=== PATIENT | female | born 1960 | race Caucasian/White ===

== ENCOUNTER 2020-08-22 18:32 | Outpatient (REF) | payer BC, SELFPAY ==
--- NOTE | 2020-08-22 11:45 | PAPFT_PTH ---
PATIENT: Debra Alves LOC: [facility] U#:[id number] AGE/SX: 59/F ROOM: RE08/22/[address]: Leonor Leger APRN : 1960 BED: DIS: 08/22/2020 SPEC #: [id number] RECD: 08/22/20 18:36 STATUS: NAHUM REQ #: [id number] MANDI: 08/22/20 11:[address]: Leonor Leger DEPT: [facility] Cytology RECD BY: Violet Sarkar Tissues: 1 - CX/ENDOCX FOR PAP SMEARS Procedures: PAP THIN PREP/UVM Screening HPV DNA PROBE Comments: [id number]
== END 2020-08-22 18:52 ==
LOC: LBN 18:32
PROVIDERS: PCP Nurse Practitioner Family; Visit Provider Nurse Practitioner Family
DX: Z12.4 Encounter for screening for malignant neoplasm of cervix (principal); Z11.51 Encounter for screening for human papillomavirus (HPV)
CPT/HCPCS: 88142; 87624

== ENCOUNTER 2020-09-21 00:56 | Outpatient (CLI) | payer BC, SELFPAY ==
--- NOTE | 2020-09-21 10:50 | DI.MAMMO_ITS ---
EXAM: MAMMO SCREENING CLINICAL HISTORY: screening, Z12.39 TECHNIQUE: Mammograms were interpreted according to the usual protocol including computer analysis w [email or web address] CAD system, tomosynthesis and C-view imaging. COMPARISON: 2017 and 2018 FINDINGS: The breasts are composed of heterogeneously dense fibroglandular densities, Breast Density category C . No suspicious masses or suspicious microcalcifications are seen. No skin thickening or abnormal axillary lymph nodes are seen. There has been no significant change from prior exams. IMPRESSION: BI-RADS Category 1, Negative mammogram. Yearly screening mammography is recommended. Breast Density Category C, heterogeneously Dense. The mammogram demonstrates the patient's breast tissue is dense. Dense breast tissue is very common a nd is not abnormal but dense breast tissue can make it harder to find cancer on a mammogram. Also, de nse breast tissue may increase breast cancer risk. This information about the result of the mammogram report was provided to the patient to raise their awareness. Use this report when you speak with the patient about their risks for breast cancer, which includes their family history. At that time, you may recommend additional screening tests (Ultrasound or MRI) as they might be useful based on their r isk. A negative radiographic report should not delay biopsy if a dominant or clinically suspicious mass is present. Up to ten percent of cancers are not identified on mammography. A negative report may reinforce clinical impression. Adenosis and dense breasts may obscure an underlying neoplasm. False positive reports average 6 to 10%.
== END 2020-09-21 01:16 ==
PROVIDERS: PCP Nurse Practitioner Family; Visit Provider Nurse Practitioner Family
DX: Z12.31 Encounter for screening mammogram for malignant neoplasm of breast (principal)
CPT/HCPCS: 77063; 77067

== ENCOUNTER 2020-09-21 01:32 | Outpatient (CLI) | payer BC, SELFPAY ==
[2020-09-21 11:38] LABS: TSH (W/Ref FT4) 1.74 uIU/mL (0.36-3.74)
== END 2020-09-21 01:52 ==
PROVIDERS: PCP Nurse Practitioner Family; Visit Provider Nurse Practitioner Family
DX: E03.9 Hypothyroidism, unspecified (principal)
CPT/HCPCS: 36415; 84443

== ENCOUNTER 2020-09-23 11:04 | Outpatient (CLI) | payer BC, SELFPAY ==
[2020-09-26 02:14] LABS: Patient Race White; SARS-CoV-2 RNA Undetected (Undetected); SARS-CoV-2 Specimen Source Nasal
== END 2020-09-23 11:24 ==
PROVIDERS: PCP Nurse Practitioner Family; Visit Provider Nurse Practitioner Family
DX: Z20.828 Contact with and (suspected) exposure to other viral communicable diseases (principal)
CPT/HCPCS: U0003

== ENCOUNTER → 2022-10-02 02:14 | Outpatient (CLI) | payer BC, SELFPAY ==
--- NOTE | 2022-10-02 | DI.MAMMO_ITS ---
Exam(s) MAMMO SCREENING EXAM: MAMMO SCREENING CLINICAL HISTORY: screening, z12.39. TECHNIQUE: Bilateral full field digital CC and MLO mammographic images were obtained with 3D tomosyn thesis and utilizing computer aided detection (CAD). COMPARISON: Prior mammograms were reviewed. FINDINGS: Fibroglandular tissue pattern is again noted be dense, this somewhat decreasing the sensitivity of th e mammogram for finding hidden underlying lesions. There are no obvious new spiculated masses nor malignant appearing microcalcification groups. There is no significant architectural distortion nor skin thickening-retraction. IMPRESSION: Dense bilateral fibroglandular tissue. No obvious radiographic evidence of malignancy nor significan t change compared to prior mammograms. BI-RADS Category 1 - Negative Breast Density - Category C - Heterogeneously dense Breast density Category C or D implies that the patient has dense breast tissue. Dense breast tissue can make it harder to find cancer on a mammogram. Dense breast tissue is also associated with an incr eased risk of breast cancer. This information about the result of the mammogram report was provided to the patient to raise their awareness. Use this report when you speak with the patient about their risks for breast cancer, which includes their family history. At that time, you may recommend additional screening tests (Ultrasoun d or MRI) as these tests may add significant information. A negative radiographic report should not delay biopsy if a dominant or clinically suspicious mass is present. Up to ten percent of cancers are not identified on mammography. A negative report may reinforce clinical impression. Adenosis and dense breasts may obscure an underlying neoplasm. False positive reports average 6 to 10%. Patient will receive a letter notifying them of these results.
== END ==
PROVIDERS: PCP Family Medicine; Visit Provider Family Medicine
DX: Z12.31 Encounter for screening mammogram for malignant neoplasm of breast (principal); R92.8 Other abnormal and inconclusive findings on diagnostic imaging of breast
CPT/HCPCS: 77063; 77067

== ENCOUNTER 2023-06-07 15:04 | Outpatient (REF) | payer BC, SELFPAY ==
[2023-06-07 15:23] LABS: Abs Immature Grans 0.01 10^3/uL (0.0-0.06); Absolute Basophil Count 0.03 10^3/uL (0.0-0.2); Absolute Lymphocyte Count 0.77 10^3/uL (1.2-3.4); Absolute Monocyte Count 0.27 10^3/uL (0.1-0.8); Absolute Neutrophil Count 1.98 10^3/uL (1.2-6.7); HCT 41.2 % (36.0-46.0); HGB 13.9 g/dL (11.2-15.7); Immature Grans % 0.3; Lymphocytes % 25.2; MCH 29.8 pg (27.0-33.0); MCHC 33.7 % (32.0-36.0); MCV 88 fL (80-95); MPV 9.7 fL (8.0-11.0); Monocytes % 8.8; Neutrophils % 64.7; Platelet Count 154 10^3/uL (130-400); RBC 4.67 10^6/uL (3.93-5.22); RDW 13.1 % (11.7-14.6); RDW-SD 42.4 fL; WBC 3.06 10^3/uL (4.4-10.8)
[2023-06-07 15:50] LABS: ALT 47 U/L (14-59); AST 43 U/L (15-37); Albumin 3.5 g/dL (3.4-5.0); Alkaline Phosphatase 120 U/L (46-116); Anion Gap 4.8 mmol/L (3-11); BUN 11 mg/dL (7-18); Bilirubin, Total 0.3 mg/dL (0.2-1.0); CO2 30.2 mmol/L (21.0-32.0); CREATININE 0.9 mg/dL (0.55-1.02); Calcium 8.8 mg/dL (8.5-10.1); Calculated LDL 109 mg/dL (<100); Chloride 102 mmol/L (98-107); Cholesterol 223 mg/dL (<200); Estimated GFR 73.19 (mL/min/1.73m2); Glucose 110 mg/dL (74-106); HDL Cholesterol 99 mg/dL (40-60); Sodium 137 mmol/L (136-145); TSH 0.33 uIU/mL (0.36-3.74); Triglyceride 78 mg/dL (<150)
[2023-06-10 12:09] LABS: Lyme Ab w Rflx to Lyme Confirm Negative (Negative)
[2023-06-11 15:13] LABS: Anaplasma phagocytophilum Negative (Negative); B. miyamotoi PCR Negative (Negative); Babesia divergens/MO-1 Negative (Negative); Babesia duncani Negative (Negative); Babesia microti Negative (Negative); Ehrlichia chaffeensis Negative (Negative); Ehrlichia ewingii/canis Negative (Negative); Ehrlichia muris eauclairensis Negative (Negative)
== END 2023-06-07 15:05 | disposition home or self-care (01) ==
LOC: NCHCN 15:04
PROVIDERS: PCP Family Medicine; Visit Provider Nurse Practitioner Family
DX: R68.83 Chills (without fever) (principal); M79.18 Myalgia, other site; M25.59 Pain in other specified joint; W57.XXXA Bitten or stung by nonvenomous insect and other nonvenomous arthropods, initial encounter; Z13.220 Encounter for screening for lipoid disorders; E03.9 Hypothyroidism, unspecified
CPT/HCPCS: 80053; 80061; 87798; 84443; 85025; 86618

== ENCOUNTER 2023-07-29 15:32 | Outpatient (REF) | payer BC, SELFPAY ==
--- NOTE | 2023-07-29 09:30 | PAPFT_PTH ---
PATIENT: Debra Alves LOC: [facility]#:[id number] AGE/SX: 62/F ROOM: RE07/29/[address]: Rojas Ballard : 1960 BED: DIS: 07/29/2023 SPEC #: [id number] RECD: 07/29/23 18:36 STATUS: NAHUM REQ #: [id number] MANDI: 07/29/23 09:[address]: Rojas Ballard DEPT: [facility] Cytology RECD BY: Violet Sarkar Tissues: 1 - CX/ENDOCX FOR PAP SMEARS Procedures: PAP THIN PREP/UVM Screening HPV DNA PROBE Comments: [id number]
== END 2023-07-29 15:33 | disposition home or self-care (01) ==
LOC: NCHCN 15:32
PROVIDERS: PCP Family Medicine; Visit Provider Family Medicine
DX: Z12.4 Encounter for screening for malignant neoplasm of cervix (principal); Z11.51 Encounter for screening for human papillomavirus (HPV); Z00.00 Encounter for general adult medical examination without abnormal findings; Z01.419 Encounter for gynecological examination (general) (routine) without abnormal findings
CPT/HCPCS: 88142; 87624

== ENCOUNTER → 2023-08-06 01:17 | Outpatient (CLI) | payer BC, SELFPAY ==
--- NOTE | 2023-08-06 | DI.RAD_ITS ---
Exam(s) XR HIP RT COMPLETE AP PELVIS EXAM: XR HIP RT COMPLETE AP PELVIS CLINICAL HISTORY: RT HIP PAIN, M25.551. TECHNIQUE: 2D digital imaging was performed of the right hip. Two images were obtained. AP pelvis a nd lateral right hip views were obtained. COMPARISON: No exams were available for comparison FINDINGS: BONES: No acute fracture is present. No bony destructive lesion is seen. JOINTS: No dislocation present. There is joint space narrowing and acetabular spurring of the right h ip. The sacroiliac joints are well maintained. SOFT TISSUE: Normal. IMPRESSION: Moderate osteoarthritis of the right hip. DATA REPOSITORY: RADIATION DOSE DELIVERED:
== END ==
PROVIDERS: PCP Family Medicine; Visit Provider Family Medicine
DX: M16.11 Unilateral primary osteoarthritis, right hip (principal)
CPT/HCPCS: 73502

== ENCOUNTER 2023-08-30 06:11 | Day surgery (SDC) | payer BC, SELFPAY ==
--- NOTE | 2023-08-29 21:30 | W.COLOREPORT ---
Date of service: 08/30/23 Time of Service: 08:15 Colonoscopy Report Date of procedure: 08/30/23 Pre-op diagnosis general: Colon cancer screening Post-op diagnosis procedure note: other (Adenomatous polyp) Surgeon: Palma Mata Anesthesia Type: General:No Airway Estimated blood loss (mL): 1 Pathology: other Complications: None Disposition: same day Prep: Miralax/Dulcolax Retraction Time: 8 Procedure Description: After informed consent was obtained the patient was taken to the procedure room and placed in a left decubitous position. Monitors were applied and a time out was done. The patients name, date of , procedure, allergies to medications and metal in their body was reviewed. The patient was then sedated. Once sedated and comfortable a rectal exam was done. External exam was normal. Internal exam revealed a normal sphincter tone and no palpable masses. The scope was then introduced and retrofelexed. No without internal hemorrhoids were identified. The scope was then advanced to the cecum difficulty. The TI and appendiceal orifice were identified. The prep was BBPS 3 in all segments for total of 9. The scope was then slowly retracted over 8 minutes back into the rectum. There were no diverticula or AVMs visualized today. the mucosa is pink and healthy with a normal vascular pattern. She has a 5 mm pedunculated polyp at 20 cm that is removed with cold biopsy forcep. All specimen is retrieved and no bleeding is noted.. The scope was removed and the patient was woken up and taken back to Same day surgery in stable condition. The patient tolerated the procedure well and there were no immediate complications. Follow up: The patient should follow up in 7-10 path pending,, years unless they develop changes in bowel habits or other new gastrointestinal complaints.
--- NOTE | 2023-08-29 21:31 | PDOC.DSDIS_ITS ---
Date of service: 08/30/23 Time of Service: 08:17 Discharge Plan Disposition Patient Disposition: Home Condition: Good Discharge Details Reason For Visit: Colon cancer screening Attending Provider: Palma Mata Primary Care Provider: Rojas Ballard Home Meds and New Rx's Prescriptions: Continued levothyroxine 88 mcg tablet 88 mcg PO DAILY Qty: 90 3RF Rx Instructions: Administer in the morning on an empty stomach, at least 30-60 minutes before food. Discontinued bisacodyl [Dulcolax (bisacodyl)] 5 mg tablet,delayed release (DR/EC) 5 mg PO ONCE Qty: 4 0RF Rx Instructions: Colonoscopy Bowel Prep- Per Instructions polyethylene glycol 3350 17 gram/dose powder 238 g PO ONCE Qty: 238 0RF Rx Instructions: Colonoscopy Bowel Prep- Per Instructions Discharge Instructions Additional Instructions: DSU Colonoscopy Post- Op Instructions Instructions for Everyone who is given Anesthesia: For your safety, please do the following for the next twenty-four (24) hours: *Do Not operate a motor vehicle (car, truck, motorcycle, etc.) *Do Not drink alcoholic beverages or use any recreational drugs for the first 24 hours or while taking pain medications. The medications in your body may have a reaction that can be dangerous. *Do Not make any important decisions or sign any important papers. Findings: x1 colon polyp. Otherwise normal. Follow up: My office will send you a letter in 2 to 3 weeks time with the results of p olypectomy and when you want you to repeat the colonoscopy, somewhere between 5 and 7. 1. No lifting over 20 pounds or strenuous activity for the first 24 hours after your procedure. After 24 hours there are no restrictions on your activity but you may feel fatigued for a few days. 2. After you arrive home you may have a light meal and return to your normal diet as you can tolerate it without feeling sick to your stomach. 3. You may have a bloated, gaseous feeling in your belly (abdomen) after a colonoscopy. Passing gas and belching will help. Walking or lying down on your left side with your knees flexed may relieve the discomfort. Call the office at [phone] (Office) or [phone] (Hospital) right away if you notice any of the following: a.Vomiting of blood or ?coffee ground stools?. b.Rectal bleeding 1Tbsp, blood clots or continuous bleeding. c.Severe belly (abdominal) pain. d.A hard distended belly (abdomen) and an inability to pass gas. 4. Please don?t expect to have a normal BM (bowel movement) for 2-3 days after your procedure. 5. If there are questions regarding the findings of your procedure, please contact your doctor 6. If you are unable to contact your doctor with a problem, contact the hospital at [phone]. 7. Continue all your regular medications unless directed otherwise. I understand the above instructions and have no questions. Signature of Patient or Adult Escort Name of Responsible Adult Escort Signature of Nurse Date/Time Activity:: See above Diet:: See above Discharge Orders Discharge Orders: Discharge Order (Routine); Ordered 08/30/23 Ordered By: Palma Mata DS: Diagnosis Discharge Diagnosis (1) Hypothyroidism: Status: Chronic (2) Reactive airway disease: Status: Chronic (3) Screening for malignant neoplasm of colon performed: Status: Acute Asessment and Plan: The patient is seen and examined after their colonoscopy.? The patient has been able to pass gas.? They are not having abdominal pain.? They have been able to tolerate liquids and a snack.? They do not have any nausea or vomiting.? They are not having any chest pain or shortness of breath.??? They are not having any rectal bleeding. Their vital signs have been stable-see nursing notes. We discussed findings during their colonoscopy, and any biopsies that were done/ polyps that were removed. The patient will be sent a letter with any biopsy results, and when to repeat the colonoscopy.-see discharge instructions. Patient was given explicit instructions to follow-up regarding colonoscopy-refer to discharge instructions.? We reviewed resumption of medications. Patient verbalized understanding and discharged in stable and satisfactory condition- See nursing notes. (4) Adenomatous polyps: Status: Acute
[2023-08-30 06:14] VITALS: BP 112/76; PULSE 67; RESP 16; TEMP 36.5; O2SAT 98
--- NOTE | 2023-08-30 07:08 | ANES.PREOP_ITS ---
General Info Date of Service Date Performed: 08/30/23 Height: 5 ft 4 in Weight: 51.4 kg Body Mass Index (BMI): 19.4 Surgical Procedure: Operation Date: 08/30/23 07:35 Proposed Procedure Side Surgeon p Colonoscopy Palma Mata DO Actual Procedure Side Surgeon p Colonoscopy Not Applicable Palma Mata, Meds Allergies and Home Medications Allergies Allergy/AdvReac Type Severity Reaction Status Date / Time ketorolac tromethamine Allergy Severe Nausea and Unverified 08/30/23 06:31 [From Toradol] Vomiting Home Medication Medication Instructions Recorded levothyroxine 88 mcg tablet 88 mcg PO DAILY #90 tab-caps 03/28/20 Current Visit Medications: Current Medications Generic Name Dose Route Start Last Admin Trade Name Freq PRN Reason Stop Dose Admin Hyoscyamine Sulfate 0.125 mg 08/30/23 04:19 Hyoscyamine 0.125 Mg Sl/Oral/Chew SL 09/29/23 04:18 DIRECTED PRN Ringer's Solution 1,000 mls @ 80 mls/hr 08/30/23 06:00 IV 08/30/23 23:59 [facility] IV Miscellaneous Supplies 1 each 08/30/23 06:00 Iv Access IV 08/30/23 23:59 DIRECTED KEEGAN Ondansetron HCl 4 mg 08/30/23 04:19 Ondansetron 4 Mg/2 Ml Vial IVP 09/29/23 04:18 Q4H PRN PRN Nausea / Vomiting Sodium Chloride 0 ml 08/30/23 06:00 Normal Saline Flush 10 Ml Syr IV 08/30/23 23:59 PRN PRN Sodium Chloride 0 ml 08/30/23 06:00 Normal Saline 10 Ml Vial IJ 08/30/23 23:59 DIRECTED PRN Sterile Water 0 ml 08/30/23 06:00 Water,Injection,Sterile 10 Ml Vial IJ 08/30/23 23:59 DIRECTED PRN PFSH Active Problems Active Problems: Problem Status Onset Code Screening for malignant neoplasm of colon performed Z12.11 Alkaline phosphatase elevation R74.8 Fibrocystic breast disease N60.19 Hearing loss in right ear H91.91 High serum high density lipoprotein (HDL) 05/26/18 R79.89 Hypothyroidism E03.9 Reactive airway disease J45.909 Rosacea L71.9 Verruca vulgaris B07.8 Atrophic vaginitis N95.2 Medical History Medical History Achilles tendinitis Actinic keratitis (~01/2021) 02/01/21 Dr Sozua, [facility], Bridge of nose treated with cryotherapy H/O seborrheic keratosis 02/01/21 Dr Osborn, [facility], Right cheek treated with cryotherapy Surgical History Surgical History Appendectomy Bilateral LASIK Endocervical Curette Bx Hx of biopsy (~02/01/21) [place] [facility] [place] ~ Recurrent major depression in partial remission Radiofrequency, (L)Saphenous Vein Pt. denies depression Rotator Cuff Repair (~2009) R Gustine Teeth Removal Tobacco Smoking/Tobacco Use Status: Never Passive smoking exposure: No Alcohol Alcohol Intake: former Substance Use Substance use: Never Substance use type: does not use Vital Signs and Lab Results Vital Signs Most Recent Vital Signs in EMR: Most Recent Vital Signs Temp Pulse Resp BP Pulse Ox 36.5 C 67 16 112/76 98 08/30/23 06:14 08/30/23 06:14 08/30/23 06:14 08/30/23 06:14 08/30/23 06:14 Lab Results Blood Type / Crossmatch: No Data to Display Complete Blood Count: No Data to Display Complete Metabolic Panel: No Data to Display Liver Function Panel: No Data to Display Coagulation Panel: No Data to Display Cardiac Panel: No Data to Display Arterial Blood Gas: No Data to Display Venous Blood Gas: No Data to Display Pancreas Panel: No Data to Display Thyroid Panel: No Data to Display Infectious Disease: No Data to Display Blood Cultures: No Data to Display Toxicology Panel: No Data to Display Anesthesia Assessment and Plan Anesthesia History Personal History: No History of Anesthesia Complications Family History: No Family History of Anesthesia Complications Exercise Tolerance Exercise Tolerance: Metabolic Equivalents>4 Pertinent Negatives Pertinent Negatives: No Symptoms of GERD, No Major Cardiovascular Symptoms or Complaints, No Major Pulmonary Symptoms or Complaints and No History of CVA/TIA Cardiac & Pulmonary Exam Cardiac Exam: Normal S1/S2 Heart Sounds Pulmonary Exam: Clear Bilateral Breath Sounds Implantable Cardiac Device Does patient have a Pacemaker or an ICD?: No Airway Exam Known Difficult Airway: No Mallampati Class: 2 Mouth Opening: Normal (> 3cm) Thyromental Distance: Greater than 3 cm Neck Range of Motion: Full ROM Neck Circumference: Normal Teeth Condition: Normal Dentition ASA Classification ASA Score: ASA 2 Emergency Case?: No NPO Status NPO Status: NPO Clears >2 hours, Solids >8 hours Anesthesia Plan Resuscitation Status: Full Code Anesthesia Technique: General Anesthesia Airway Planned: Natural Airway Monitors Used: Standard Monitors
[2023-08-30] MEDS: Lactated Ringers 1,000 ML 80 ML IV (07:10)
[2023-08-30 07:15] VITALS: BMI 19.4
--- NOTE | 2023-08-30 08:00 | BOWEL_PTH ---
PATIENT: Debra Alves LOC: [facility] U#:[id number] AGE/SX: 62/F ROOM: RE08/30/[address]: Palma Mata : 1960 BED: DIS: 08/30/2023 SPEC #: [id number] RECD: 08/30/23 12:20 STATUS: NAHUM REElisa #: [id number] MANDI: 08/30/23 08:[address]: Palma Mata DEPT: Surgical Specimen RECD BY: Violet Sarkar ENTERED: 08/30/23 12:21 SP TYPE: Bowel OTHR DR: Rojas Ballard Tissues: 1 - BIOPSY BOWEL Procedures: GROSS AND MICRO LEVEL 4 Comments: [id number]
[2023-08-30 08:07] VITALS: BP 81/45; PULSE 57; RESP 16; TEMP 36.4; O2SAT 100
--- NOTE | 2023-08-30 08:23 | W.ANESPOSTOP ---
Postoperative Evaluation Date, Time and Location Date Performed: 08/30/23 Time Performed: 08:23 Patient Location: Day Surgery Unit Vital Signs Most Recent Imported Vital Signs: Most Recent Vital Signs Temp Pulse Resp BP Pulse Ox 36.4 C L 57 L 16 81/45 L 100 08/30/23 08:07 08/30/23 08:07 08/30/23 08:07 08/30/23 08:07 08/30/23 08:07 Pain Score Most Recent Pain Score: Most Recent Pain Score Pain Level 0 08/30/23 08:07 Assessment Mental Status: Awake (Alert & Oriented to Patient Baseline) Airway and Respiratory Function: Patent airway with normal (patient baseline) respiratory exam Cardiovascular Function: Hemodynamically Stable Hydration Status: Adequately Hydrated Nausea & Vomiting: No Nausea or Vomiting Pain: Pt. Denies Any Pain Peripheral Nerve Block: Patient did not receive a nerve block Postoperative Comments:: BP recheck 99/51
[2023-08-30 08:30] VITALS: BP 97/69; PULSE 59; RESP 18; TEMP 36.2; O2SAT 98
== END 2023-08-30 09:00 | disposition home or self-care (01) ==
PROVIDERS: PCP Family Medicine; Visit Provider Surgery
PROC: 0DJD8ZZ Inspection of Lower Intestinal Tract, Via Natural or Artificial Opening Endoscopic (ICD-10-PCS; CPT 45378; principal; 2023-08-30 07:30)
DX: Z12.11 Encounter for screening for malignant neoplasm of colon; D12.5 Benign neoplasm of sigmoid colon; E03.9 Hypothyroidism, unspecified; J45.909 Unspecified asthma, uncomplicated
CPT/HCPCS: 45380; 88305; J2001; J2405